=== PATIENT | female | born 1980 | race Caucasian/White ===

== ENCOUNTER 2016-09-09 22:16 | Emergency (ER) | payer OTHER ==
[~2016-09-09] VITALS: Ht 175.3 cm; Wt 97.5 kg
--- NOTE | ~2016-09-09 | CR112 ---
[facility]. [facility] A Service of [facility] RADIOLOGY TEXT RESULTS PATIENT: BRITNEY VENCES LOCATION: SED : 82 UNIT #: [id number] AGE: [address]: DONNY FARR SEX: F ORDER DR: [id number] [place] [id number] E MR#: [id number] Acc #: [id number] NAME: BRITNEY VENCES : 1980 SEX: F STUDY DATE/TIME: 09/09/2016 UNIT: SED ROOM: STUDY DESCRIPTION: CR Finger 2 View 4Th Lt Attending Physician: Donny Farr Aprn Ordering Physician: Donny Farr Aprn Primary Care Physician: Cuco Singh M.D. MEDICAL IMAGING REPORT This report is preliminary unless electronic signature is present. EXAM Left fourth digit 09/09 at 23:14 INDICATIONS Laceration 1 hour ago on a piece of metal shelving. Pain. FINDINGS Two views of the left fourth digit were obtained. There is no fracture or malalignment. There are no radiopaque foreign bodies. IMPRESSION Negative left fourth digit. Dictated by... Colten Zhao Jr., M.D. THIS IS AN ELECTRONICALLY VERIFIED REPORT Colten Zhao Jr., M.D. at 09/10/2016 9:34 PM JANE/pepe TD: 09/10/2016 09:15 JOB #: [id number] MEDICAL IMAGING REPORT Page 1 of 1
[~2016-09-09 22:16] MED LIST: FLEXERIL PO; NORCO 5/325 TAB1 TAB PO; PHENERGAN25 MG PO; VICODIN 5/1 TAB 5/50 PO
[2016-09-09] MEDS ORDERED: SYNTHROID PO (22:50)
[2016-09-09] MEDS ORDERED: VITAMIN D 22000 UNIT PO (22:50)
[2016-09-10] MEDS ORDERED: MOTRIN600 MG PO (01:07)
== END 2016-09-10 01:24 | disposition home or self-care (01) ==
LOC: SED 22:16
DX: S61.215A Laceration without foreign body of left ring finger without damage to nail, initial encounter (principal); E03.9 Hypothyroidism, unspecified; Z90.49 Acquired absence of other specified parts of digestive tract; Z23 Encounter for immunization; Z88.5 Allergy status to narcotic agent; W26.8XXA Contact with other sharp object(s), not elsewhere classified, initial encounter; Y92.512 Supermarket, store or market as the place of occurrence of the external cause
CPT/HCPCS: 12001; 73140; 90471; 90715; 99283

== ENCOUNTER 2016-09-19 21:10 | Emergency (ER) | payer OTHER ==
[~2016-09-19] VITALS: Ht 170.2 cm; Wt 113.4 kg
[~2016-09-19 21:10] MED LIST changes: +MOTRIN600 MG PO; +SYNTHROID PO; +VITAMIN D 22000 UNIT PO
== END 2016-09-19 21:39 | disposition home or self-care (01) ==
LOC: SED 21:10
DX: S61.215D Laceration without foreign body of left ring finger without damage to nail, subsequent encounter (principal); Z79.899 Other long term (current) drug therapy; Z88.5 Allergy status to narcotic agent
CPT/HCPCS: 99281